=== PATIENT | male | born 1940 | race Hispanic/Latino ===

== ENCOUNTER 2022-08-31 20:37 | Emergency (ER) | payer OTHER, SELFPAY ==
[2022-08-31] MEDS ORDERED: Sodium Chloride 0.9% 500 ML ONE (21:05)
[2022-08-31 21:21] LABS: ALT (SGPT) 30 U/L (8-55); AST (SGOT) 39 U/L (5-34); Albumin 3.3 g/dL (3.4-4.8); Alkaline Phosphatase 136 U/L (40-110); Anion Gap 15 mmol/L (10-20); BUN (Urea Nitrogen) 12 mg/dL (8.4-25.7); Bilirubin, Total 0.5 mg/dL (0.2-1.2); Calc. Creatinine Clearance 0 mL/min (70-130); Calcium 8.7 mg/dL (7.8-10.44); Carbon Dioxide 22 mmol/L (23-31); Chloride 104 mmol/L (98-107); Estimated GFR 88; Globulin 3.7 g/dL (2.4-3.5); Glucose 181 mg/dL (83-110); Magnesium 1.7 mg/dL (1.6-2.6); Potassium 3.7 mmol/L (3.5-5.1); Sodium 137 mmol/L (136-145)
[2022-08-31 21:22] LABS: CK (CPK) 139 U/L (30-200); CRP (Inflammatory) Less than 0.50 mg/dL (= or < 0.5); Lipase 29 U/L (8-78)
[2022-08-31 21:27] LABS: Bilirubin Negative (Negative); Blood, Urine Moderate (Negative); Clarity Clear (Clear); Glucose, Urine (Dipstick) 500 mg/dL (Negative); Ketone, Urine Trace mg/dL (Negative); Leukocyte Negative (Negative); Nitrite Negative (Negative); Protein, Urine (Dipstick) Negative (Neg-Trace); Specific Gravity, Urine 1.025 (1.005-1.030); Urobilinogen 0.2 mg/dL (Less than 2); pH, Urine 5.5 (5.0-9.0)
[2022-08-31 21:31] LABS: Squamous Epithelial 0-3 HPF (0-3); WBC/HPF 0-3 HPF (0-3)
[2022-08-31 21:34] LABS: #Eosinphils 0.2 thou/uL (0.0-0.7); #Lymphocytes 2.4 thou/uL (1.20-3.40); #Monocytes 0.6 thou/uL (0.11-0.59); #Neutrophils 2.5 thou/uL (1.40-6.50); %Basophils 0.7 % (0.0-1.0); %Eosinophils 2.6 % (0.0-10.0); %Lymphocytes 42.3 % (21.0-51.0); %Monocytes 11.2 % (0.0-10.0); %Neutrophils 43.1 % (42.0-75.0); MDiff Complete? YES; Mean Corpuscular HGB CONC 33.9 g/dL (32.0-36.0); Mean Corpuscular Hemoglobin 35.3 pg (27.0-31.0); Mean Platelet Volume 9.1 fL (7.4-10.4); Platelet Count 94 10x3/uL (130-400); RBC Distribution Width 12.3 % (11.5-14.5); Red Blood Cell (RBC) Count 3.67 mill/uL (4.70-6.10); White Blood Cell (WBC) Count 5.7 10x3/uL (4.8-10.8)
[2022-08-31 21:35] LABS: Macrocytosis SLIGHT = 6-15 cells (100X) (0-5/hpf); Platelet Morphology Comment Appears Decreased
== END 2022-08-31 22:57 | disposition home or self-care (01) ==
LOC: NAV ERS 20:37
DX: D51.9 Vitamin B12 deficiency anemia, unspecified (principal); I10 Essential (primary) hypertension; Z79.899 Other long term (current) drug therapy
CPT/HCPCS: 74022; 80053; 81003; 81015; 82550; 83605; 83690; 83735; 83880; 84443; 84484; 85025; 86140; 93005; J7030

== ENCOUNTER 2025-03-06 20:29 | Emergency (ER) | payer OTHER ==
[2025-03-06] MEDS ORDERED: diphenhydrAMINE 25 MG CAP ONE (20:42)
== END 2025-03-06 20:54 | disposition home or self-care (01) ==
LOC: NAV ERS 20:29
DX: S60.461A Insect bite (nonvenomous) of left index finger, initial encounter (principal); I10 Essential (primary) hypertension; W57.XXXA Bitten or stung by nonvenomous insect and other nonvenomous arthropods, initial encounter
CPT/HCPCS: 99282